=== PATIENT | female | born 1980 | race Caucasian/White ===

== ENCOUNTER 2023-08-14 16:15 | Outpatient (CLI) | payer BC, SELFPAY ==
[2023-08-14 16:26] VITALS: BP 142/93; PULSE 87; RESP 20; TEMP 36.8; O2SAT 95
[2023-08-14 17:29] VITALS: PULSE 80; O2SAT 97
[2023-08-14] MEDS: Dexamethasone Sod. Phos./Pres-Free 10 MG/ML VIAL IJ (17:39)
[2023-08-14] MEDS: Bupivacaine 0.5% Pres-Free 10 ML VIAL IJ (17:40)
--- NOTE | 2023-08-14 17:42 | PDOC.PAIN ---
Date of service: 08/14/23 Time of Service: 17:42 Pain Managment Procedure Note Procedure Note Procedure Note: ULTRASOUND GUIDED RIGHT COMMON PERONEAL NERVE BLOCK Pre-Procedural Evaluation: Bridgett Nichole has been referred to the [facility] for an Ultrasound Guided RIGHT COMMON PERONEAL NERVE BLOCK for a chief complaint of right anterior lower leg and the dorsum of the right foot to include the web between the 1st and 2nd toes. Pre-procedure Pain Score: 5/10 Patient was interviewed and the medical record reviewed. There were no medical, pharmacologic, radiographic, or other structural contraindications to preforming an ultrasound guided injection. Risks and expected side effects as well as potential benefits of the procedure were reviewed. The patient consent form was signed and witnessed. Standard time-out procedure was performed. The use of direct ultrasound visualization of the needle (rather than a non-guided injection) was required to increase patient safety by excluding inadvertent intramuscular, intratendinous, or intraneural needle placement and minimizing bleeding by avoiding osteochondral or vascular injury from the needle. Additionally, the increased accuracy of placement may increase clinical effectiveness and will allow higher diagnostic specificity when evaluating effectiveness of this injection. Procedure Description: The patient was placed in the left lateral recumbant position and automated blood pressure cuff and pulse oximeter applied for monitoring during the procedure and recorded in the medical record. Pre-injection ultrasound scanning of the area of interest was performed using linear transducer, identifying relevant anatomy, landmarks, and neurovascular structures allowing for optimal needle path. This procedure was completed posterior to the head of the right fibular as her deonte pain is now 3/[address] up the right lower leg and does include the web between the right 1st and 2nd toes. The site was then prepared in the usual sterile fashion, using thorough Chlorhexadine preparation of the skin and sterile draping. The same ultrasound transducer was then passed into the sterile field using sterile probe cover and sterile ultrasound gel. The injection target was again visualized. Skin and subcutaneous tissues were anesthetized with 2 mL of 1% Lidocaine. A 22G [employer] ultrasound needle was placed under live ultrasound guidance, using an in-plane approach, to the target area. After visualization of the needle tip at the target area, a mixture of 10 mg of Dexamethasone followed by 5 cc of 0.5% Bupivacaine was delivered after negative aspiration for blood. Ultrasound images were captured and stored for documentation purposes. Post-procedure Pain Score:5/10, but the pain is described as less intense Vital signs were stable throughout the procedure and were as recorded in the docflowsheet by the nursing staff. Follow up plans and appointments were discussed with the patient.Post procedure instruction was given as documented in nursing documentation and having met discharge criteria, they were discharged from the [facility]. COMMENTS: She will keep track of her pain and try to do desensitizing maneuvers. Curtis Moura DO, MPH [facility]-Pain Management [facility] for [facility] Management
== END 2023-08-14 16:16 | disposition home or self-care (01) ==
LOC: PC 16:16
PROVIDERS: Visit Provider Preventive Medicine Occupational Medicine
DX: G57.31 Lesion of lateral popliteal nerve, right lower limb (principal)
CPT/HCPCS: 64510